=== PATIENT | male | born 1980 | race American Indian/Alaskan Native ===

== ENCOUNTER 2018-09-19 16:50 | Emergency (ER) | payer MEDICAID ==
[~2018-09-19] VITALS: Ht 167.6 cm; Wt 67.7 kg
[2018-09-19 17:28] VITALS: BP 104/79
[2018-09-19] MEDS ORDERED: CHLO473M3 PO (17:54)
[2018-09-19] MEDS ORDERED: CLIN300C54 PO (17:54)
== END 2018-09-19 18:02 | disposition home or self-care (01) ==
LOC: ER 16:53
DX: K04.7 Periapical abscess without sinus (principal); Z88.0 Allergy status to penicillin; Z88.5 Allergy status to narcotic agent; Z88.8 Allergy status to other drugs, medicaments and biological substances
CPT/HCPCS: 99283

== ENCOUNTER 2025-05-10 09:55 | Emergency (ER) | payer MEDICAID ==
[~2025-05-10] VITALS: Ht 167.6 cm; Wt 72.0 kg
[~2025-05-10 09:55] MED LIST: CHLO473M13 PO; CLIN300C54 PO
[2025-05-10 10:47] VITALS: TEMP 98.4
[2025-05-10] MEDS: LIDOcaine 1% 30ml preserv. free vial SQ STA (11:00)
--- NOTE | 2025-05-10 11:05 | Physician Documentation ---
History of Present Illness ~ Chief Complaint: Bite-insect Stated Complaint: SPIDER BITE Time Seen by MD: 10:24 HPI 45-year-old male presents to the ED with a complaint of right foot pain and swelling. States that he thinks he was bit by a bug three days ago. However patient reports increased pain in the wound is hot to touch the superior aspect of his right foot just proximal to the 3rd and 4th toes. deneis fever Day of Onset: May 10, 2025 Tetanus within 5 years?: No Medication Reconciliation Allergies: Coded Allergies: Penicillins (Verified Allergy, Unknown, 09/19/18) codeine (Verified Allergy, Unknown, 09/19/18) hydrocodone (Verified Allergy, Unknown, 09/19/18) metoclopramide (Verified Allergy, Unknown, 09/19/18) prochlorperazine (Verified Allergy, Unknown, 09/19/18) promethazine (Verified Allergy, Unknown, 09/19/18) Scheduled Cephalexin*Monohydrate* (Keflex*), 1 CAP PO QID Chlorhexidine Gluconate (Periogard), 15 ML PO Q12H Clindamycin HCl (Clindamycin HCl), 1 CAP PO QID Sulfamethoxazole/Trimethoprim (Septra Ds Tab), 1 TAB PO Q12H Past Medical History Past Medical History: No Pertinent History Past Surgical History: noncontributory Alcohol Use: None Drug Use: none Lives In: Home Review of Systems All Other Systems at this time: Reviewed and Negative ROS As stated above in the HPI, otherwise all systems are reviewed and negative. Physical Exam Vital Signs: Temperature: 98.4, Source: Temporal, Heart Rate: 56, Respiratory Rate: 16, BP: 144/99, Pulse Oximetry: 99, Weight: 72.000 Oxygen Flow Rate: 0 Physical Exam General: Alert, no apparent distress. HEENT: PERRL, EOMI, no injection, moist mucous membranes. . Extremities: Normal range of motion, no deformity. right foot swelling, erythema raised fluctuant area proximal to 3 and 4th toes Neurologic: Oriented x4. Psychiatric: Normal mood and affect. Skin: Normal color, warm and dry. No edema, no ecchymosis. Procedures I & D Procedure : Anesthesia: Lidocaine Blade Size: 11 Prep/Supplies: dressing applied, packing placed Incision: pus drained Tolerated Procedure Well?: yes, no complications Progress Results/Orders Results/Orders Orders - NIKOLAY SUGGS NP Laceration/I&D Tray Set Up (05/10/25 ) Completed Orders - NIKOLAY SUGGS NP Lidocaine 1% 30ml Vial (Xylocaine 1% Via (05/10/25 11:00) Sulfamethox/Trimetho. Ds Tab (Septra Ds (05/10/25 11:45) Cephalexin Capsule (Keflex Capsule) (05/10/25 11:45) Vital Signs 05/10/25 05/10/25 10:04 10:47 Temp 97.3 98.4 Pulse 67 56 Resp 16 16 B/P (MAP) 131/93 144/99 (114) Pulse Ox 99 99 O2 Flow Rate 0 0 Medical Decision Making Findings This patient initially presented with concerns over insect bite however upon further evaluation it appeared that there is a developing abscess which could have been secondary to an insect bite. He required a minor I and D and I placed a about 2 cm of packing to allow for healing by secondary intention. Going to place the patient on antibiotics and discharge Differential Dx:Considerations: Include: Abrasion, Allergic reaction, Anaphylaxis, Cellulitis, Contusion, Fracture, Hematoma, Insect envenomation, Laceration, Neurovascular injury, Punture wound, Retained foreign body, Urticaria, Other Departure Disposition: 01 HOME / SELF CARE / HOMELESS Impression: Primary Impression: Cellulitis Additional Impression: Insect bites Condition: Stable Discharge Instructions: Insect Bite, Adult, [id number], Cellulitis, Adult Referrals: NO PRIMARY CARE PROVIDER (PCP) Prescriptions Cephalexin*Monohydrate* (Keflex*) 500 Mg Capsule 1 CAP PO QID, #40 CAP Prov: NIKOLAY SUGGS NP 05/10/25 Sulfamethoxazole/Trimethoprim (Septra Ds Tab) 800 Mg/160 Mg Tablet 1 TAB PO Q12H for 10 Days, #20 TAB Prov: NIKOLAY SUGGS NP 05/10/25 Signature Scribe Signature: s Attestation: Scribed for Nikolay Suggs Np by Nikolay Scales NP . 05/10/25 11:48 NIKOLAY SUGGS NP May 10, 2025 11:05
[2025-05-10] MEDS ORDERED: CEPH-585 PO (11:47)
[2025-05-10] MEDS ORDERED: SULF1TAB45 PO (11:47)
[2025-05-10] MEDS: sulfamethoxazole/trimethoprim DS (800/160mg) tablet PO ONE (12:02)
[2025-05-10] MEDS: cephalexin 250mg capsule PO ONE (12:02)
[2025-05-10 12:08] VITALS: BP 142/71; PULSE 88; RESP 16; O2SAT 99
== END 2025-05-10 12:07 | disposition home or self-care (01) ==
LOC: ER 09:56
DX: L03.115 Cellulitis of right lower limb (principal); S90.861A Insect bite (nonvenomous), right foot, initial encounter; Z88.0 Allergy status to penicillin; Z88.5 Allergy status to narcotic agent; Z79.899 Other long term (current) drug therapy; W57.XXXA Bitten or stung by nonvenomous insect and other nonvenomous arthropods, initial encounter; Y93.89 Activity, other specified; Y92.89 Other specified places as the place of occurrence of the external cause; Y99.8 Other external cause status
CPT/HCPCS: 10060; 99283